=== PATIENT | male | born 1960 | race Caucasian/White ===

== ENCOUNTER 2018-09-06 08:00 | Observation (INO) | payer OTHER, SELFPAY ==
[2018-09-06] VITALS (11 sets, daily range): BP systolic 133–149; BP diastolic 83–95; PULSE 54–72; RESP 14–18; TEMP 36.6–36.9; O2SAT 95–98; BMI 30.4; BMI 28.6; BMI 28.7
--- NOTE | 2018-09-06 08:11 | EKG12_ITS ---
Test Reason : CHEST PAIN Blood Pressure : / mmHG Vent. Rate : 063 BPM Atrial Rate : 063 BPM P-R Int : 154 ms QRS Dur : 090 ms QT Int : 424 ms P-R-T Axes : 030 000 032 degrees QTc Int : 433 ms Normal sinus rhythm Normal ECG Confirmed by VALENTINA PÉREZ MD ([id number]), editorial assistant JOHN COHN ([id number]) on 09/11/2018 9:49:15 AM Referred By: RENÉE Confirmed By:VALENTINA PÉREZ MD
--- NOTE | 2018-09-06 08:12 | ED.VISSUMM ---
- ER Visit Summary Date of Service: 09/06/18 Chief Complaint: Chest pain History of Present Illness: The patient is a 58 M presenting with a proximally 45 minutes of midsternal nonradiating chest pain that started while he was lifting heavy parts at work. He denies previous similar symptoms. He became somewhat diaphoretic and short of breath as well. He noted that it was worse with exertion. He has a family history of cardiac disease in his father who at a young age of myocardial infarction. He is not certain of the exact age but it was most likely in his late 30s or early 40s by description. He does smoke cigarettes but denies history of high cholesterol or retention. He had a stress test many years ago which she believes was negative. Physical Examination: Vital signs are within normal limits. He is in mild distress due to pain. Neck is supple. Heart tones are regular and without murmur. Lungs are clear bilaterally with good air movement. Chest wall is nontender. No rash. Strong pulses in all extremities. No tenderness along the lower extremity venous system, palpable cords, or other evidence of DVT. Test Results: CBC and BMP normal. Troponin negative. EKG unremarkable. Chest x-ray unremarkable Emergency Department Course and Treatment: He was given aspirin. His story is very concerning for a cardiac event and he does have family history and high cholesterol as well as long-term cigarette smoking history. I do not feel he can be ruled out on a single negative cardiac biomarker since his pain just started 45 minutes prior to arrival. Given his risk factors, I do feel he meets criteria for observation in the hospital, serial enzymes, and possible stress test. He has no clinical evidence of DVT or DVT/PE risk factors. The pain is not pleuritic and his pulse oximetry is 100%. There is no mediastinal widening on chest x-ray, he has strong pulses in both upper cavities, and the pain was not ripping or tearing in nature so I think the likelihood of a dissection is extremely low. His pain resolved here in the emergency department and he remained pain-free. I feel he stable for admission to a PCU bed. Treatment Plan: Admit to PCU Disposition:observation Impression: Initial encounter chest pain-rule out myocardial infarction This note was generated with [employer] dictation software. It may contain incorrect words, spelling, and punctuation that were not noted in review of the chart prior to signing
[2018-09-06 08:18] LABS: Absolute Lymphocyte Count 2.07 X10^3/ul (0.83-4.51); Absolute Neutrophil Count 2.7 X10^3/uL (2.0-7.7); Basophil# 0.01 X10^3/uL; Basophil% 0.2 % (0-1); Eosinophil# 0.19 X10^3/uL; Eosinophils% 3.6 % (0-5); Hematocrit 39.3 % (40-54); Hemoglobin 12.9 g/dl (13.0-16.5); Lymphocyte # 2.07 X10^3/ul (4.0); Lymphocyte % 39.4 % (19-41); Mean Corp Hgb Conc 32.8 g/gl (32-36); Mean Corpuscular Hgb 31.5 pg (27.0-32.0); Mean Corpuscular Volume 95.9 fL (80-94); Mean Platelet Vol. 9.8 fl (6.2-12.0); Monocyte# 0.29 X10^3/uL; Monocyte% 5.5 % (0-10); Neutrophil # 2.69 X10^3/uL (2.7-7.7); Neutrophil % 51.3 % (47-70); Platelet Count 177 K/mm3 (150-450); RBC Distribution Width CV 14.5 % (11.6-14.6); RBC Distribution Width SD 50.9 fl (35.1-43.9); White Blood Count 5.3 K/mm3 (4.4-11.0)
[2018-09-06 08:23] LABS: POSITIVE COUNT NO; POSITIVE DIFFERENTIAL NO; POSITIVE MORPHOLOGY NO
--- NOTE | 2018-09-06 08:25 | RAD_ITS ---
STUDY: X-RAY CHEST REASON FOR EXAM: Male, 58 years old. Chest pain. TECHNIQUE: PA and lateral views of the chest. COMPARISON: None. FINDINGS: EKG electrodes are seen. The lungs are clear and expanded. Scattered calcified granulomas. There is no demonstrated pleural abnormality. Normal size heart. Normal mediastinum and erika. Normal visualized pulmonary arteries. Normal visualized aortic arch and descending thoracic aorta. There are mild degenerative changes of the visualized thoracic spine. Normal visualized ribs, clavicles, and shoulders. There is no demonstrated abnormality of the visualized soft tissue structures of the upper abdomen. RAD/Chest PA and Lateral IMPRESSION: No acute abnormality seen. Electronically Signed: Yoel Lake MD at 8:38 EST , Service support ,
[2018-09-06 08:38] LABS: Anion Gap 5 (5-15); BUN 16 mg/dL (7-18); Calcium,Total 8.8 mg/dL (8.5-10.1); Chloride 110 mmol/L (98-107); EST Glomerular Filtration Rate 81 mL/min (>60); Est Glom Filt Rate - Afr Amer 98 mL/min (>60); Estimated Creatinine Clearance 88.78 ml/min; Glucose 103 mg/dL (74-106); Potassium 4.4 mmol/L (3.5-5.1); Sodium Level 141 mmol/L (136-145)
--- NOTE | 2018-09-06 10:48 | EKG12_ITS ---
Test Reason : Blood Pressure : / mmHG Vent. Rate : 056 BPM Atrial Rate : 056 BPM P-R Int : 146 ms QRS Dur : 092 ms QT Int : 454 ms P-R-T Axes : 014 005 023 degrees QTc Int : 438 ms Sinus bradycardia Otherwise normal ECG When compared with ECG of 24-SEP-2002 10:29, No significant change was found Confirmed by BETO RAMÍREZ, VALENTINA ([id number]), editorial intern JOHN COHN ([id number]) on 09/11/2018 11:24:02 AM Referred By: SIMONA Confirmed By:VALENTINA PÉREZ MD
--- NOTE | 2018-09-06 11:00 | PCM.HP.STD ---
Problem List (1) Chest pain Status: Acute Qualifiers: Chest pain type: unspecified Qualified Code(s): R07.9 - Chest pain, unspecified History of Present Illness Date of Admission: 09/06/18 Chief Complaint: chest pain The patient is a 58 year old M who was in his normal state of health today developed chest pain. 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 During this period where he actually was not exerting himself, he developed pain across his chest. It did not radiate anywhere. Was associated with some lightheadedness. Patient sat down and started to feel better. Patient states that he has had similar episodes but less severe. [place] to be related with reflux which she states in the past he is taking Tums which seems to have alleviated the symptoms in the past. But this episode was much more severe. Hydrated. Patient's workup in the emergency room was unremarkable. He did receive aspirin. [] Past Medical History Medical History: Medical History (Last Updated 09/06/18 @ 11:02 by Dustin Low DO) GERD (gastroesophageal reflux disease) K21.9 Allergies bee venom protein (honey bee) Allergy (Verified 09/06/18 08:01) Swelling Home Medications: Ambulatory Orders Medication Instructions Recorded Niacin 500 mg PO QHS 09/06/18 Omeprazole 20 mg PO QHS 09/06/18 Surgical History: - - Skin cancer removal from his left cheek Psychiatric History: No pertinent psych hx Smoking Status: Light Smoker (<10/day) Tobacco Use: Cigarettes - 1 pack of cigarettes per week Alcohol: Heavy - Drinks anywhere from 2-3 rum and Cokes per day Drugs: None - *Family History Paternal History Items: Heart Disease - roughly 40 years ago from a myocardial infarction Review of Systems Constitutional: Reports: Malaise. Denies: Anorexia, Chills, Fever, Night Sweats Eyes: Denies: Blurred vision, Double vision HEENT: Denies: Head Aches, Sinus Congestion, Sinus Drainage Cardiovascular: Reports: Chest Pain, Heaviness. Denies: Edema Respiratory: Denies: Cough, Shortness of breath at rest, Sputum production Gastrointestinal: Denies: Abdominal Pain, Nausea, Vomiting Genitourinary: Denies: Dysuria Musculoskeletal: Denies: Joint Pain, Joint Tenderness Skin: Denies: Rash, Wounds Neurological: Denies: Numbness, Tingling, Focal weakness Psychiatric: Denies: Anxiety, Depression, Homicidal Ideations, Suicidal Ideations Hematologic/ Lymphatic: Denies: Easy Bruising, Easy Bleeding, Hx of blood clot Comment: A 10 point review of systems were negative except as mentioned in the history of present illness and the other review of systems. VTE Information - Inpt Only VTE Present on Admission: No VTE Mechan Device Prophylaxis: None VTE Pharm Prophylaxis ordered?: Yes Patient Problems: Active and Suspected Problems (Last Updated 09/06/18 @ 11:02 by Dustin Low DO) Chest pain (Acute) - Physical Exam General: Alert, Cooperative, No apparent distress HEENT: Atraumatic, PERRLA, EOMI, Normocephalic Oral: Moist Mucosa, No Gingival or Mucosal Lesions/ Ulcerations Neck: No Nodes, Thyroid Normal Size and Texture Lungs: Clear to auscultation, Normal air movement, No rhonchi, No wheeze Cardiovascular: Regular rate, Regular Rhythm, Normal S1, Normal S2, No murmurs Abdomen: Bowel Sounds Present, Soft, Non Tender, Non-Distended, No Hepato-splenomegaly Extremities: No edema, No Calf Tenderness Skin: - - Small surgical incision red lesion on the bridge of his nose Psych/Mental Status: Normal Affect, Appropriate Vital Signs Temp Pulse Resp BP Pulse Ox 36.8 C 72 18 149/90 H 98 09/06/18 08:02 09/06/18 08:02 09/06/18 08:02 09/06/18 08:02 09/06/18 08:13 Oxygen Flow Rate (L/min) 2 Oxygen Delivery Method Nasal Cannula Weight: 104.5 kg Body Mass Index (BMI) 30.4 Laboratory Tests Past 24 Hrs 09/06/18 09/06/18 08:03 08:03 WBC 5.3 RBC 4.10 L Hgb 12.9 L Hct 39.3 L MCV 95.9 H MCH 31.5 MCHC 32.8 RDW 14.5 RDW Differential 50.9 H Plt Count 177 MPV 9.8 Immature Gran % (Auto) 0.000 Neut % (Auto) 51.3 Lymph % (Auto) 39.4 [place] % (Auto) 5.5 Eos % (Auto) 3.6 Baso % (Auto) 0.2 Absolute Neuts (auto) 2.7 Absolute Lymphs (auto) 2.07 Total Counted Not Reportable Sodium 141 Potassium 4.4 Chloride 110 H Carbon Dioxide 26.0 Anion Gap 5 BUN 16 Creatinine 1.00 Estim Creat Clear Calc 88.78 Est GFR (MDRD) Af Amer 98 Est GFR (MDRD) Non-Af 81 BUN/Creatinine Ratio 16.0 Glucose 103 Calcium 8.8 Troponin I < 0.015 Clinical Impression(s) from Imaging Studies Chest X-Ray 09/06/18 08:25 IMPRESSION: No acute abnormality seen. Electronically Signed: Yoel Lake MD at 8:38 EST , Service support , EKG reviewed and showed normal sinus rhythm with no acute changes. Assessment/Plan All Active Problems (Last Updated 09/06/18 @ 11:02 by Dustin Low DO) Chest pain (Acute) 1. Chest pain Heart score is 3, ETHAN score of 1 Plan is for a stress test today to evaluate. If abnormal, will consult cardiology. If normal, then will discharge home. Patient advises that could be related to esophageal spasm that could be secondary to his known reflux. Did advise the patient irregardless to have alcohol in moderation is consuming is too much. I told him specifically, 1 or no drinks per day. Did advise also smoking cessation. Patient be on aspirin in the meantime, patient did receive aspirin in the emergency room. Told patient if his symptoms seem to be recurrent then he may allergy for reflux evaluation. 2. Skin cancer When a first inquired if it was melanoma, he said yes but then said later just to basal cell. Would seem unlikely that this is the urgency usually associated with that. Though I did make patient aware of the malignant potential associated with melanoma and advised him to inquire directly from his adoption services manager if he did have melanoma or basal cell cancer. 3. DVT prophylaxis with Lovenox the patient is here long enough Code Visit OBSV E&M: [id number] Initial observation care L2
--- NOTE | 2018-09-06 11:04 | HP.PCM_ITS ---
Problem List (1) Chest pain Status: Acute Qualifiers: Chest pain type: unspecified Qualified Code(s): R07.9 - Chest pain, unspecified History of Present Illness Date of Admission: 09/06/18 Chief Complaint: chest pain The patient is a 58 year old M who was in his normal state of health today developed chest pain. 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 During this period where he actually was not exerting himself, he developed pain across his chest. It did not radiate anywhere. Was associated with some lightheadedness. Patient sat down and started to feel bett er. Patient states that he has had similar episodes but less severe. [place] to be related with reflux which she states in the past he is taking Tums which seems to have alleviated the symptoms in the past. But this episode was much more severe. Hydrated. Patient's workup in the emergency room was unremarkable. He did receive aspirin. [] Past Medical History Medical History: Medical History (Last Updated 09/06/18 @ 11:02 by Dustin Low DO) GERD (gastroesophageal reflux disease) K21.9 Allergies bee venom protein (honey bee) Allergy (Verified 09/06/18 08:01) Swelling Home Medications: Ambulatory Orders Medication Instructions Recorded Niacin 500 mg PO QHS 09/06/18 Omeprazole 20 mg PO QHS 09/06/18 Surgical History: - - Skin cancer removal from his left cheek Psychiatric History: No pertinent psych hx Smoking Status: Light Smoker (<10/day) Tobacco Use: Cigarettes - 1 pack of cigarettes per week Alcohol: Heavy - Drinks anywhere from 2-3 rum and Cokes per day Drugs: None - *Family History Paternal History Items: Heart Disease - roughly 40 years ago from a myocardial infarction Review of Systems Constitutional: Reports: Malaise. Denies: Anorexia, Chills, Fever, Night Sweats Eyes: Denies: Blurred vision, Double vision HEENT: Denies: Head Aches, Sinus Congestion, Sinus Drainage Cardiovascular: Reports: Chest Pain, Heaviness. Denies: Edema Respiratory: Denies: Cough, Shortness of breath at rest, Sputum production Gastrointestinal: Denies: Abdominal Pain, Nausea, Vomiting Genitourinary: Denies: Dysuria Musculoskeletal: Denies: Joint Pain, Joint Tenderness Skin: Denies: Rash, Wounds Neurological: Denies: Numbness, Tingling, Focal weakness Psychiatric: Denies: Anxiety, Depression, Homicidal Ideations, Suicidal Ideations Hematologic/ Lymphatic: Denies: Easy Bruising, Easy Bleeding, Hx of blood clot Comment: A 10 point review of systems were negative except as mentioned in the history of present illness and the other review of systems. VTE Information - Inpt Only VTE Present on Admission: No VTE Mechan Device Prophylaxis: None VTE Pharm Prophylaxis ordered?: Yes Patient Problems: Active and Suspected Problems (Last Updated 09/06/18 @ 11:02 by Dustin Low DO) Chest pain (Acute) - Physical Exam General: Alert, Cooperative, No apparent distress HEENT: Atraumatic, PERRLA, EOMI, Normocephalic Oral: Moist Mucosa, No Gingival or Mucosal Lesions/ Ulcerations Neck: No Nodes, Thyroid Normal Size and Texture Lungs: Clear to auscultation, Normal air movement, No rhonchi, No wheeze Cardiovascular: Regular rate, Regular Rhythm, Normal S1, Normal S2, No murmurs Abdomen: Bowel Sounds Present, Soft, Non Tender, Non-Distended, No Hepato- splenomegaly Extremities: No edema, No Calf Tenderness Skin: - - Small surgical incision red lesion on the bridge of his nose Psych/Mental Status: Normal Affect, Appropriate Vital Signs Temp Pulse Resp BP Pulse Ox 36.8 C 72 18 149/90 H 98 09/06/18 08:02 09/06/18 08:02 09/06/18 08:02 09/06/18 08:02 09/06/18 08:13 Oxygen Flow Rate (L/min) 2 Oxygen Delivery Method Nasal Cannula Weight: 104.5 kg Body Mass Index (BMI) 30.4 Laboratory Tests Past 24 Hrs 09/06/18 09/06/18 08:03 08:03 WBC 5.3 RBC 4.10 L Hgb 12.9 L Hct 39.3 L MCV 95.9 H MCH 31.5 MCHC 32.8 RDW 14.5 RDW Differential 50.9 H Plt Count 177 MPV 9.8 Immature Gran % (Auto) 0.000 Neut % (Auto) 51.3 Lymph % (Auto) 39.4 [place] % (Auto) 5.5 Eos % (Auto) 3.6 Baso % (Auto) 0.2 Absolute Neuts (auto) 2.7 Absolute Lymphs (auto) 2.07 Total Counted Not Reportable Sodium 141 Potassium 4.4 Chloride 110 H Carbon Dioxide 26.0 Anion Gap 5 BUN 16 Creatinine 1.00 Estim Creat Clear Calc 88.78 Est GFR (MDRD) Af Amer 98 Est GFR (MDRD) Non-Af 81 BUN/Creatinine Ratio 16.0 Glucose 103 Calcium 8.8 Troponin I < 0.015 Clinical Impression(s) from Imaging Studies Chest X-Ray 09/06/18 08:25 IMPRESSION: No acute abnormality seen. Electronically Signed: Yoel Lake MD at 8:38 EST , Service support , EKG reviewed and showed normal sinus rhythm with no acute changes. Assessment/Plan All Active Problems (Last Updated 09/06/18 @ 11:02 by Dustin Low DO) Chest pain (Acute) 1. Chest pain Heart score is 3, ETHAN score of 1 Plan is for a stress test today to evaluate. If abnormal, will consult cardiology. If normal, then will discharge home. Patient advises that could be related to esophageal spasm that could be secondary to his known reflux. Did advise the patient irregardless to have alcohol in moderation is consuming is too much. I told him specifically, 1 or no drinks per day. Did advise also smoking cessation. Patient be on aspirin in the meantime, patient did receive aspirin in the emergency room. Told patient if his symptoms seem to be recurrent then he may allergy for reflux evaluation. 2. Skin cancer When a first inquired if it was melanoma, he said yes but then said later just to basal cell. Would seem unlikely that this is the urgency usually associated with that. Though I did make patient aware of the malignant potential associated with melanoma and advised him to inquire directly from his industrial analyst if he did have melanoma or basal cell cancer. 3. DVT prophylaxis with Lovenox the patient is here long enough Code Visit OBSV E&M: [id number] Initial observation care L2
[2018-09-06] MEDS: Enoxaparin 40 MG/0.4 ML Syringe SC (14:07)
[2018-09-06] MEDS: Pantoprazole Sodium 20 MG Tablet PO (21:07)
[2018-09-07 03:00] VITALS: BP 137/92; PULSE 56; RESP 16; TEMP 36.7; O2SAT 97
[2018-09-07 03:02] VITALS: PULSE 55
--- NOTE | 2018-09-07 04:00 | EKG12_ITS ---
Test Reason : AM EKG Blood Pressure : / mmHG Vent. Rate : 056 BPM Atrial Rate : 056 BPM P-R Int : 150 ms QRS Dur : 092 ms QT Int : 430 ms P-R-T Axes : 023 001 028 degrees QTc Int : 414 ms Sinus bradycardia Otherwise normal ECG When compared with ECG of 06-SEP-2018 10:52, MANUAL COMPARISON REQUIRED, DATA IS UNCONFIRMED Confirmed by BETO RAMÍREZ, VALENTINA ([id number]), online content editor JOHN COHN ([id number]) on 09/14/2018 11:53:18 AM Referred By: VIMAL Confirmed By:VALENTINA PÉREZ MD
[2018-09-07 04:44] LABS: Hematocrit 39.2 % (40-54); Hemoglobin 12.6 g/dl (13.0-16.5); Mean Corp Hgb Conc 32.1 g/gl (32-36); Mean Corpuscular Hgb 31.4 pg (27.0-32.0); Mean Corpuscular Volume 97.8 fL (80-94); Mean Platelet Vol. 10.5 fl (6.2-12.0); Platelet Count 168 K/mm3 (150-450); RBC Distribution Width CV 14.2 % (11.6-14.6); RBC Distribution Width SD 49.3 fl (35.1-43.9); Red Blood Count 4.01 M/mm3 (4.6-6.2); White Blood Count 5.6 K/mm3 (4.4-11.0)
[2018-09-07 04:46] LABS: International Normalized Ratio 0.9; Prothrombin Time (Protime)PT. 12.6 SECONDS (11.7-14.9); Scan Indicated on CBC? Y/N NO
[2018-09-07 04:56] LABS: Anion Gap 8 (5-15); BUN 13 mg/dL (7-18); BUN/Creat Ratio 13.4 RATIO (10-20); Calcium,Total 8.7 mg/dL (8.5-10.1); Chloride 110 mmol/L (98-107); Cholesterol 159 mg/dL (200); Creatinine, Serum 0.97 mg/dL (0.70-1.30); EST Glomerular Filtration Rate 84 mL/min (>60); Est Glom Filt Rate - Afr Amer 102 mL/min (>60); Estimated Creatinine Clearance 91.52 ml/min; Glucose 100 mg/dL (74-106); High Density Lipoprotein 45 mg/dL; Potassium 4.1 mmol/L (3.5-5.1); Sodium Level 145 mmol/L (136-145); Triglycerides 116 mg/dL; Very Low Density Lipoprotein 23 mg/dL (5-40)
[2018-09-07] MEDS: Aspirin E.C. 81 MG Tablet PO (05:30)
--- NOTE | 2018-09-07 08:30 | STE_ITS ---
Reason For Study: CHEST PAIN Stress Results Protocol: Stress Echocardiogram Maximum Predicted HR: 160 bpm Target HR: 136 bpm % Maximum Predicted HR: 86 % DurationHeart Rate Stage (mm:ss) (bpm) BP Comment BASELINE 59 140/92 JERARDO PROTOCOL- STAGE 1 3:00 105 158/84 JERARDO PROTOCOL- STAGE 2 3:00 125 176/90 JERARDO PROTOCOL- STAGE 3 1:25 137 / SOB, PO 97% RECOVERY 84 150/90 Stress Duration: 7:25 mm:ss Maximum Stress HR: 137 bpm Baseline Echocardiogram Findings The estimated ejection fraction is 65 %. Stress Echo Wall motion Data Resting WM Intermediate WM Stress WM Resting Wall Motion Wall Motion Stress No regional wall motion No regional wall motion abnormalities noted. abnormalities noted. EKG Data Normal intervals are noted. The patient exercised according to the regular Jerardo protocol for a total duration of 7:25. The maximum heart rate attained was 136 beats per minute. This was 85% of maximum predicted heart rate. The patient exercised into stage 3 of the Jerardo protocol. During stress, there were no ST or T wave changes noted to suggest ischemia. No clinical angina was noted. Interpretation Summary The estimated ejection fraction is 65 %. Normal, adequate, treadmill echocardiogram. Negative for ischemia by EKG and echocardiographic criteria. No anginal symptoms noted. No arrhythmias noted. Appropriate blood pressure response to exercise. Average exercise capacity for age. Test terminated due to attainment of target heart rate and dyspnea. Final LVEF is 75%. No complications. Ordering Physician: Maranda^Dustin^^^DO Referring Physician: Juarez Holly DO Performed By: Amy Ramirez RDCS
[2018-09-07 09:42] VITALS: BP 162/94; PULSE 63; RESP 16; TEMP 36.6; O2SAT 96
[2018-09-07 09:45] VITALS: PULSE 67
--- NOTE | 2018-09-07 11:53 | DCINST_ITS ---
- Discharge Diagnoses Current Active Problems: Current Active and Chronic Problems (Last Updated 09/06/18 @ 11:02 by Dustin Low DO) Chest pain (Acute) You will use the following diet at home:: Cardiac, Other - Avoid alcohol use Your food should be the consistency of: Regular Your liquids should be the consistency of: Regular/Thin Discharge Activity: Return to Normal Activity, - - Discontinue smoking Allergies/Adverse Reactions: Allergies bee venom protein (honey bee) Allergy (Verified 09/06/18 08:01) Swelling Medications to take at Discharge Niacin 500 mg PO QHS 09/06/18 Omeprazole 20 mg PO QHS 09/06/18 Primary Care Physician: Juarez Holly DO [Primary Care Provider] - Please follow up with your Primary Care Physician in: 1-2 weeks Test Results: Test results from this visit will be discussed in further detail at your follow- up appointment, if applicable. Please Follow Up With: Gastroenterology When: 2 weeks Proposed Discharge Date: 09/07/18
[2018-09-07 12:44] VITALS: BP 152/100; PULSE 59; RESP 18; TEMP 36.6; O2SAT 98
--- NOTE | 2018-09-07 14:39 | PCM.DC.SUM ---
<Negro Palmer - Last Filed: 09/07/18 14:39> Discharge Date and Diagnosis - Problem List Patient Problems: Active and Suspected Problems (Last Updated 09/06/18 @ 11:02 by Dustin Low DO) Chest pain (Acute) Date of Admission: 09/06/18 Date of Discharge: 09/07/18 - Primary Discharge Diagnosis Active and Suspected Problems (Last Updated 09/06/18 @ 11:02 by Dustin Low DO) Chest pain (Acute) - musculoskeletal, possible esophageal spasm GERD Skin cancer, unclear what type. Hospital Course and Treatment Imaging Results: 09/07/18 08:30 Stress Test Echo w/o Contrast [ECHO] Routine Interpretation Summary The estimated ejection fraction is 65 %. Normal, adequate, treadmill echocardiogram. Negative for ischemia by EKG and echocardiographic criteria. No anginal symptoms noted. No arrhythmias noted. Appropriate blood pressure response to exercise. Average exercise capacity for age. Test terminated due to attainment of target heart rate and dyspnea. Final LVEF is 75%. No complications. RAD/Chest PA and Lateral IMPRESSION: No acute abnormality seen. Operations: None Procedures: Stress test Summary of Care Provided: Hospital Course: The patient is a 58 year old M with a pmhx of unclear type of skin cancer and GERD, who presents to the ER with c/o BL chest pain that began at work at rest. He had some associated lightheadedness. He stated that it felt similar to reflux he had had in the past however is much more severe than past episodes. He came to the emergency room had negative chest x-ray, negative troponin, negative EKG. He was admitted for chest pain workup to the PCU on telemetry. He had no events on telemetry. Negative troponin x3. Following day he underwent stress test which was negative. His chest pain was felt to be secondary to muscular skeletal pain and/or possibly esophageal spasm. We advised him to follow-up with his PCP in 1-2 weeks. We also advised him to follow-up with gastroenterology. He stated that he would talk to his PCP about a medical education manager that he could see locally. He is already on a PPI. He was discharged home in stable condition. This patient was seen by Negro Palmer PA-C under the supervision of Doctor Maranda. [] Patient Problems: Active and Suspected Problems (Last Updated 09/06/18 @ 11:02 by Dustin Low DO) Chest pain (Acute) - Physical Exam General: Alert, Oriented x3, Cooperative HEENT: Atraumatic, PERRLA, EOMI, Normocephalic Neck: Supple, No JVD, Negative Carotid Bruits Lungs: Clear to auscultation, Normal air movement Cardiovascular: Regular rate, No murmurs Abdomen: Bowel Sounds Present, Soft, Non Tender Extremities: No edema, Capillary Refill Less than 3 Seconds Skin: No rashes, No breakdown Musculoskeletal: No Tenderness to Palpation of Joints or Extremities Neurological: Cranial nerves II-XII grossly intact Psych/Mental Status: Normal Affect, Appropriate, Alert and oriented to time, place, person, mood and affect Vital Signs Temp Pulse Resp BP Pulse Ox 98 F 59 L 18 152/100 H 98 09/07/18 12:44 09/07/18 12:44 09/07/18 12:44 09/07/18 12:44 09/07/18 12:44 Oxygen Flow Rate (L/min) 2 Oxygen Delivery Method Room Air Weight: 217 lb 6.012 oz Body Mass Index (BMI) 28.6 Intake and Output for Last 24 Hours 09/05/18 09/06/18 09/07/18 23:59 23:59 23:59 Intake Total 1100 / 1100 Balance 1100 / 1100 Laboratory Tests Past 24 Hrs 09/07/18 09/07/18 09/07/18 04:16 04:16 04:16 WBC 5.6 RBC 4.01 L Hgb 12.6 L Hct 39.2 L MCV 97.8 H MCH 31.4 MCHC 32.1 RDW 14.2 RDW Differential 49.3 H Plt Count 168 MPV 10.5 PT 12.6 INR 0.9 APTT 28.0 Sodium 145 Potassium 4.1 Chloride 110 H Carbon Dioxide 27.0 Anion Gap 8 BUN 13 Creatinine 0.97 Estim Creat Clear Calc 91.52 Est GFR (MDRD) Af Amer 102 Est GFR (MDRD) Non-Af 84 BUN/Creatinine Ratio 13.4 Glucose 100 Calcium 8.7 Triglycerides 116 Cholesterol 159 LDL Cholesterol 91 VLDL Cholesterol 23 HDL Cholesterol 45 Discharge Diet: Low fat/ Low Cholesterol, 2000 mg Sodium Diet Discharge Activity: Return to Normal Activity, - - Discontinue smoking Home Medications: Medications to take at Discharge Niacin 500 mg PO QHS 09/06/18 Omeprazole 20 mg PO QHS 09/06/18 Primary Care Physician: Juarez Holly DO [Primary Care Provider] - Please follow up with your Primary Care Physician in: 1-2 weeks Please Follow Up With: Gastroenterology When: 2 weeks Disposition: Home Minutes spent on discharge:: 35 Patient Condition:: Stable Medical Necessity - Tobacco Use Smoking Status: Light Smoker (<10/day) Tobacco Use: Cigarettes Meaningful Use Info Meaningful Use Diagnoses (Choose all that apply): None applicable <Dustin Low - Last Filed: 09/07/18 15:38> Discharge Date and Diagnosis - Primary Discharge Diagnosis Active and Suspected Problems (Last Updated 09/06/18 @ 11:02 by Dustin Low DO) Chest pain (Acute) Hospital Course and Treatment Imaging Results: 09/07/18 08:30 Stress Test Echo w/o Contrast [ECHO] Routine Operations: None Procedures: Stress test Summary of Care Provided: Patient seen and examined independently. Data reviewed. I agree with the above note by the physician housekeeper/laundry assistant. The patient is a 58 year old M presents with chest pain. Stress test was performed and was negative. Discussed with the patient, feel that this may be an esophageal spasm that may be septated by his reflux. Discussed with the patient about reflux and triggers, one being in particular, alcohol. Advised moderation as patient is getting 3 drinks per day advised that 1 or no drinks. Did advise patient to follow-up with gastroenterology for further evaluation. Told him the risk of chronic reflux could lead to changes of the esophageal epithelium (i.e. Israel's esophagus). [] - Physical Exam General: Alert, Cooperative HEENT: Atraumatic, Normocephalic Psych/Mental Status: Normal Affect, Appropriate Vital Signs Temp Pulse Resp BP Pulse Ox 36.6 C 59 L 18 152/100 H 98 09/07/18 12:44 09/07/18 12:44 09/07/18 12:44 09/07/18 12:44 09/07/18 12:44 Oxygen Flow Rate (L/min) 2 Oxygen Delivery Method Room Air Weight: 98.6 kg Body Mass Index (BMI) 28.6 Intake and Output for Last 24 Hours 09/05/18 09/06/18 09/07/18 23:59 23:59 23:59 Intake Total 1100 / 1100 Balance 1100 / 1100 Laboratory Tests Past 24 Hrs 09/07/18 09/07/18 09/07/18 04:16 04:16 04:16 WBC 5.6 RBC 4.01 L Hgb 12.6 L Hct 39.2 L MCV 97.8 H MCH 31.4 MCHC 32.1 RDW 14.2 RDW Differential 49.3 H Plt Count 168 MPV 10.5 PT 12.6 INR 0.9 APTT 28.0 Sodium 145 Potassium 4.1 Chloride 110 H Carbon Dioxide 27.0 Anion Gap 8 BUN 13 Creatinine 0.97 Estim Creat Clear Calc 91.52 Est GFR (MDRD) Af Amer 102 Est GFR (MDRD) Non-Af 84 BUN/Creatinine Ratio 13.4 Glucose 100 Calcium 8.7 Triglycerides 116 Cholesterol 159 LDL Cholesterol 91 VLDL Cholesterol 23 HDL Cholesterol 45 Discharge Diet: Low fat/ Low Cholesterol, 2000 mg Sodium Diet Discharge Activity: Return to Normal Activity, - Disposition: Home Minutes spent on discharge:: 35 Patient Condition:: Stable Medical Necessity - Tobacco Use Smoking Status: Light Smoker (<10/day) Tobacco Use: Cigarettes Meaningful Use Info Meaningful Use Diagnoses (Choose all that apply): None applicable Code Visit OBSV E&M: 88727 Observation care discharge
--- NOTE | 2018-09-07 14:48 | DS.PCM_ITS ---
<Negro Palmer - Last Filed: 09/07/18 14:39> Discharge Date and Diagnosis - Problem List Patient Problems: Active and Suspected Problems (Last Updated 09/06/18 @ 11:02 by Dustin Low DO) Chest pain (Acute) Date of Admission: 09/06/18 Date of Discharge: 09/07/18 - Primary Discharge Diagnosis Active and Suspected Problems (Last Updated 09/06/18 @ 11:02 by Dustin Low DO) Chest pain (Acute) - musculoskeletal, possible esophageal spasm GERD Skin cancer, unclear what type. Hospital Course and Treatment Imaging Results: 09/07/18 08:30 Stress Test Echo w/o Contrast [ECHO] Routine Interpretation Summary The estimated ejection fraction is 65 %. Normal, adequate, treadmill echocardiogram. Negative for ischemia by EKG and echocardiographic criteria. No anginal symptoms noted. No arrhythmias noted. Appropriate blood pressure response to exercise. Average exercise capacity for age. Test terminated due to attainment of target heart rate and dyspnea. Final LVEF is 75%. No complications. RAD/Chest PA and Lateral IMPRESSION: No acute abnormality seen. Operations: None Procedures: Stress test Summary of Care Provided: Hospital Course: The patient is a 58 year old M with a pmhx of unclear type of skin cancer and GE RD, who presents to the ER with c/o BL chest pain that began at work at rest. He had some associated lightheadedness. He stated that it felt similar to reflux he had had in the past however is much more severe than past episodes. He came to the emergency room had negative chest x-ray, negative troponin, negative EKG. He was admitted for chest pain workup to the PCU on telemetry. He had no even ts on telemetry. Negative troponin x3. Following day he underwent stress test which was negative. His chest pain was felt to be secondary to muscular skeletal pain and/or possibly esophageal spasm. We advised him to follow-up with his PCP in 1-2 weeks. We also advised him to follow-up with gastroenterology. He stated that he would talk to his PCP about a grinder set up operator jig that he could see locally. He is already on a PPI. He was discharged home in stable condition. This patient was seen by Negro Palmer PA-C under the supervision of Doctor Low. [] Patient Problems: Active and Suspected Problems (Last Updated 09/06/18 @ 11:02 by Dustin Low DO) Chest pain (Acute) - Physical Exam General: Alert, Oriented x3, Cooperative HEENT: Atraumatic, PERRLA, EOMI, Normocephalic Neck: Supple, No JVD, Negative Carotid Bruits Lungs: Clear to auscultation, Normal air movement Cardiovascular: Regular rate, No murmurs Abdomen: Bowel Sounds Present, Soft, Non Tender Extremities: No edema, Capillary Refill Less than 3 Seconds Skin: No rashes, No breakdown Musculoskeletal: No Tenderness to Palpation of Joints or Extremities Neurological: Cranial nerves II-XII grossly intact Psych/Mental Status: Normal Affect, Appropriate, Alert and oriented to time, place, person, mood and affect Vital Signs Temp Pulse Resp BP Pulse Ox 98 F 59 L 18 152/100 H 98 09/07/18 12:44 09/07/18 12:44 09/07/18 12:44 09/07/18 12:44 09/07/18 12:44 Oxygen Flow Rate (L/min) 2 Oxygen Delivery Method Room Air Weight: 217 lb 6.012 oz Body Mass Index (BMI) 28.6 Intake and Output for Last 24 Hours 09/05/18 09/06/18 09/07/18 23:59 23:59 23:59 Intake Total 1100 / 1100 Balance 1100 / 1100 Laboratory Tests Past 24 Hrs 09/07/18 09/07/18 09/07/18 04:16 04:16 04:16 WBC 5.6 RBC 4.01 L Hgb 12.6 L Hct 39.2 L MCV 97.8 H MCH 31.4 MCHC 32.1 RDW 14.2 RDW Differential 49.3 H Plt Count 168 MPV 10.5 PT 12.6 INR 0.9 APTT 28.0 Sodium 145 Potassium 4.1 Chloride 110 H Carbon Dioxide 27.0 Anion Gap 8 BUN 13 Creatinine 0.97 Estim Creat Clear Calc 91.52 Est GFR (MDRD) Af Amer 102 Est GFR (MDRD) Non-Af 84 BUN/Creatinine Ratio 13.4 Glucose 100 Calcium 8.7 Triglycerides 116 Cholesterol 159 LDL Cholesterol 91 VLDL Cholesterol 23 HDL Cholesterol 45 Discharge Diet: Low fat/ Low Cholesterol, 2000 mg Sodium Diet Discharge Activity: Return to Normal Activity, - - Discontinue smoking Home Medications: Medications to take at Discharge Niacin 500 mg PO QHS 09/06/18 Omeprazole 20 mg PO QHS 09/06/18 Primary Care Physician: Juarez Holly DO [Primary Care Provider] - Please follow up with your Primary Care Physician in: 1-2 weeks Please Follow Up With: Gastroenterology When: 2 weeks Disposition: Home Minutes spent on discharge:: 35 Patient Condition:: Stable Medical Necessity - Tobacco Use Smoking Status: Light Smoker (<10/day) Tobacco Use: Cigarettes Meaningful Use Info Meaningful Use Diagnoses (Choose all that apply): None applicable <Dustin Low - Last Filed: 09/07/18 15:38> Discharge Date and Diagnosis - Primary Discharge Diagnosis Active and Suspected Problems (Last Updated 09/06/18 @ 11:02 by Dustin Low DO) Chest pain (Acute) Hospital Course and Treatment Imaging Results: 09/07/18 08:30 Stress Test Echo w/o Contrast [ECHO] Routine Operations: None Procedures: Stress test Summary of Care Provided: Patient seen and examined independently. Data reviewed. I agree with the above note by the physician social service assistant. The patient is a 58 year old M presents with chest pain. Stress test was performed and was negative. Discussed with the patient, feel that this may be an esophageal spasm that may be septated by his reflux. Discussed with the patient about reflux and triggers, one being in particular, alcohol. Advised moderation as patient is getting 3 drinks per day advised that 1 or no drinks. Did advise patient to follow-up with gastroenterology for further evaluation. Told him the risk of chronic reflux could lead to changes of the esophageal epithelium (i.e. Israel's esophagus). [] - Physical Exam General: Alert, Cooperative HEENT: Atraumatic, Normocephalic Psych/Mental Status: Normal Affect, Appropriate Vital Signs Temp Pulse Resp BP Pulse Ox 36.6 C 59 L 18 152/100 H 98 09/07/18 12:44 09/07/18 12:44 09/07/18 12:44 09/07/18 12:44 09/07/18 12:44 Oxygen Flow Rate (L/min) 2 Oxygen Delivery Method Room Air Weight: 98.6 kg Body Mass Index (BMI) 28.6 Intake and Output for Last 24 Hours 09/05/18 09/06/18 09/07/18 23:59 23:59 23:59 Intake Total 1100 / 1100 Balance 1100 / 1100 Laboratory Tests Past 24 Hrs 09/07/18 09/07/18 09/07/18 04:16 04:16 04:16 WBC 5.6 RBC 4.01 L Hgb 12.6 L Hct 39.2 L MCV 97.8 H MCH 31.4 MCHC 32.1 RDW 14.2 RDW Differential 49.3 H Plt Count 168 MPV 10.5 PT 12.6 INR 0.9 APTT 28.0 Sodium 145 Potassium 4.1 Chloride 110 H Carbon Dioxide 27.0 Anion Gap 8 BUN 13 Creatinine 0.97 Estim Creat Clear Calc 91.52 Est GFR (MDRD) Af Amer 102 Est GFR (MDRD) Non-Af 84 BUN/Creatinine Ratio 13.4 Glucose 100 Calcium 8.7 Triglycerides 116 Cholesterol 159 LDL Cholesterol 91 VLDL Cholesterol 23 HDL Cholesterol 45 Discharge Diet: Low fat/ Low Cholesterol, 2000 mg Sodium Diet Discharge Activity: Return to Normal Activity, - Disposition: Home Minutes spent on discharge:: 35 Patient Condition:: Stable Medical Necessity - Tobacco Use Smoking Status: Light Smoker (<10/day) Tobacco Use: Cigarettes Meaningful Use Info Meaningful Use Diagnoses (Choose all that apply): None applicable Code Visit OBSV E&M: 03750 Observation care discharge
== END 2018-09-07 13:30 | disposition home or self-care (01) ==
LOC: ED 09:14 → PCU 09:46
PROVIDERS: Emergency Provider Emergency Medicine; Family Provider Preventive Medicine Occupational Medicine; PCP Preventive Medicine Occupational Medicine
DX: R07.89 Other chest pain (principal); K21.9 Gastro-esophageal reflux disease without esophagitis; F17.210 Nicotine dependence, cigarettes, uncomplicated; R42 Dizziness and giddiness; Z79.899 Other long term (current) drug therapy; Z85.828 Personal history of other malignant neoplasm of skin; Z82.49 Family history of ischemic heart disease and other diseases of the circulatory system
CPT/HCPCS: 36415; 71046; 80048; 80061; 84484; 85025; 85027; 85610; 85730; 93005; 93017; 93350; 96372; 99218; 99285; J7030; A4216; G0378